=== PATIENT | male | born 1990 ===

== ENCOUNTER 2024-06-28 11:57 | Day surgery (SDC) | payer OTHER ==
[~2024-06-28] VITALS: Ht 175.3 cm; Wt 87.0 kg
[~2024-06-28 11:57] MED LIST: Lactated Ringer's 1,000 ML IV ONE; propofoL 50 ML IV ONE
[2024-06-28] MEDS ORDERED: BENZ100A (12:42)
[2024-06-28] MEDS ORDERED: [UNRECOGNIZED DRUG - CODE] (12:42)
[2024-06-28] MEDS ORDERED: ALBUTEROL HFA 90MCG (12:42)
[2024-06-28] MEDS ORDERED: FLUTICASONE PRO16 GM (12:42)
[2024-06-28] MEDS ORDERED: METPRE4DP (12:42)
[2024-06-28] MEDS ORDERED: AZIT200SU (12:42)
[2024-06-28] MEDS ORDERED: CYCL10 (12:43)
[2024-06-28] MEDS ORDERED: ALPR.25 (12:43)
[2024-06-28] MEDS ORDERED: Prozac20 MG (12:45)
[2024-06-28] MEDS ORDERED: LEVOTHYROXINE50 MC7 (12:46)
[2024-06-28] MEDS ORDERED: LOPE2C (12:46)
[2024-06-28] MEDS ORDERED: Clomiphene Citr50 MG PO (12:51)
[2024-06-28] MEDS ORDERED: TRAZ150T57 (12:51)
[2024-06-28] MEDS ORDERED: Lactated Ringer's 1,000 ML IV ONE (13:27)
[2024-06-28] MEDS ORDERED: Lidocaine HCl/Pf 1% 5 ML VIAL ONE (14:39)
== END 2024-06-28 15:50 | disposition home or self-care (01) ==
LOC: ORSCSDS 11:57
PROVIDERS: Internal Medicine Gastroenterology
PROC: 0DBE8ZX Excision of Large Intestine, Via Natural or Artificial Opening Endoscopic, Diagnostic (ICD-10-PCS; principal; 2024-06-28 14:00)
DX: R19.7 Diarrhea, unspecified (principal); Z86.19 Personal history of other infectious and parasitic diseases; R10.9 Unspecified abdominal pain; I10 Essential (primary) hypertension; G47.33 Obstructive sleep apnea (adult) (pediatric); F41.9 Anxiety disorder, unspecified; Z79.899 Other long term (current) drug therapy
CPT/HCPCS: 88305; J2003; J2704; J7120